=== PATIENT | female | born 1985 | race Caucasian/White ===

== ENCOUNTER 2016-12-04 10:52 | Emergency (ER) | payer OTHER ==
[2016-12-04 10:59] VITALS: BP 116/72
== END 2016-12-04 12:58 | disposition home or self-care (01) ==
LOC: ED 10:52
DX: G44.209 Tension-type headache, unspecified, not intractable (principal); R63.0 Anorexia
CPT/HCPCS: 20552; J2001

== ENCOUNTER 2018-04-06 07:32 | Emergency (ER) | payer OTHER ==
[~2018-04-06] VITALS: Ht 157.5 cm; Wt 99.3 kg
[2018-04-06 07:37] VITALS: Ht 157.5 cm; Wt 99.3 kg
[2018-04-06 11:38] VITALS: BP 124/84
== END 2018-04-06 11:38 | disposition home or self-care (01) ==
LOC: ED 07:32
DX: R10.13 Epigastric pain (principal); F32.9 Major depressive disorder, single episode, unspecified